=== PATIENT | male | born 1980 | race Two or more races ===

== ENCOUNTER 2024-09-20 10:00 | Inpatient (IN) | payer OTHER ==
[~2024-09-20] VITALS: Ht 190.5 cm; Wt 117.0 kg
[2024-09-24] MEDS ORDERED: METRONIDAZOLE/SODIUM CHLORIDE 500 MG/100 ML PIGGYBACK IV ONE (07:31)
[2024-09-24] MEDS ORDERED: CEFTRIAXONE SODIUM 2,000 MG VIAL ONE (07:31)
[2024-09-24] MEDS ORDERED: LIDOCAINE HCL 1%/EPINEPHRINE 20ML VIAL IJ ONE (09:05)
[2024-09-24] MEDS ORDERED: BUPIVACAINE HCL/Mpf 0.5% 10ML VIAL ONE (09:05)
[2024-09-24] MEDS ORDERED: SUGAMMADEX SODIUM 200 MG/2 ML VIAL IV ONE (15:52)
[2024-09-24] MEDS ORDERED: OxyCODONE HCL 5 MG TABLET (ROXICODONE) PO PRN (16:00)
[2024-09-24] MEDS ORDERED: MORPHINE SULFATE 4 MG/ML CARTRIDGE IV PRN (16:00)
[2024-09-24] MEDS ORDERED: 0.9 % SODIUM CHLORIDE 1,000 ML IV SCH (16:00)
[2024-09-24] MEDS ORDERED: ONDANSETRON HCL 2 MG/ML VIAL IV PRN (16:00)
[2024-09-24] MEDS ORDERED: POLYETHYLENE GLYCOL 3350 17 GM BLIST.PACK PO SCH (17:00)
[2024-09-24] MEDS ORDERED: HYOSCYAMINE SULFATE 0.125 MG TAB.SUBL SL SCH (17:00)
[2024-09-24] MEDS ORDERED: SIMETHICONE 125 MG CAPSULE PO SCH (17:00)
[2024-09-24] MEDS ORDERED: METOCLOPRAMIDE HCL 5 MG/ML VIAL IV SCH (17:00)
[2024-09-24] MEDS ORDERED: GABAPENTIN 300 MG CAPSULE PO SCH (17:00)
[2024-09-24] MEDS ORDERED: MORPHINE SULFATE 4 MG/ML VIAL IV ONE (18:10)
[2024-09-24 19:34] LABS: BASO % 0.2 % (0.1-1.2); HEMATOCRIT 39.8 % (40.1-51.0); HEMOGLOBIN 13.1 g/dL (13.7-17.5); LYMPH # 0.45 (1.18-3.74); LYMPH % 8.4 % (19.3-53.1); MEAN CORPUSCULAR HEMOGLOBIN 29.1 pg (25.6-32.2); MONO # 0.52 (0.24-0.82); MONO % 9.8 % (4.7-12.5); NEUT # 4.34 (1.56-6.13); NEUT % 81.4 % (34.0-71.1); PLATELET COUNT 180 K/uL (163-369); RED CELL DISTRIBUTION WIDTH 13.2 % (11.6-14.4)
[2024-09-24] MEDS ORDERED: ACETAMINOPHEN 500 MG GEL..CAP PO SCH (20:00)
[2024-09-24] MEDS ORDERED: CELECOXIB 200 MG CAPSULE PO SCH (21:00)
[2024-09-24] MEDS ORDERED: FAMOTIDINE/PF 20 MG/2 ML VIAL IV PUSH SCH (21:00)
[2024-09-25] VITALS: BP 137/80; O2SAT 92
[2024-09-25 06:48] LABS: HEMATOCRIT 40.7 % (40.1-51.0); HEMOGLOBIN 13.4 g/dL (13.7-17.5); LYMPH # 0.63 (1.18-3.74); LYMPH % 10.9 % (19.3-53.1); MEAN CORPUSCULAR HEMOGLOBIN 28.8 pg (25.6-32.2); MONO # 0.69 (0.24-0.82); MONO % 11.9 % (4.7-12.5); NEUT # 4.47 (1.56-6.13); PLATELET COUNT 211 K/uL (163-369); RED BLOOD COUNT 4.66 M/uL (4.63-6.08); RED CELL DISTRIBUTION WIDTH 13.4 % (11.6-14.4)
[2024-09-25 07:10] LABS: ALBUMIN 3.4 gm/dL (3.4-5.0); CALCIUM 8.9 mg/dL (8.5-10.1); CREATININE SERUM 0.93 mg/dL (0.70-1.30); GFR 88.68; MAGNESIUM 1.9 mg/dL (1.8-2.4); PHOSPHOROUS 2.5 mg/dL (2.5-4.9); POTASSIUM 4.25 mEq/L (3.5-5.1)
[2024-09-25 08:38] VITALS: BP 130/79; O2SAT 93
[2024-09-25] MEDS ORDERED: LACTOBACILLUS ACIDOPHILUS 1 CAP CAP PO SCH (09:00)
[2024-09-25 16:16] VITALS: BP 133/81; O2SAT 96
[2024-09-25] MEDS ORDERED: ENOXAPARIN SODIUM 40 MG/0.4 ML SYRINGE SUBCUTANEO SCH (17:00)
[2024-09-26 00:18] VITALS: BP 134/82; O2SAT 100
[2024-09-26 07:29] LABS: BASO % 0.2 % (0.1-1.2); EOS # 0.02 (0.04-0.54); EOS % 0.2 % (0.7-7.0); HEMATOCRIT 39.6 % (40.1-51.0); HEMOGLOBIN 12.9 g/dL (13.7-17.5); LYMPH % 10.6 % (19.3-53.1); MEAN CORPUSCULAR HEMOGLOBIN 29.6 pg (25.6-32.2); MONO # 0.76 (0.24-0.82); NEUT # 6.69 (1.56-6.13); NEUT % 79.2 % (34.0-71.1); PLATELET COUNT 201 K/uL (163-369); RED BLOOD COUNT 4.36 M/uL (4.63-6.08); RED CELL DISTRIBUTION WIDTH 13.7 % (11.6-14.4)
[2024-09-26 08:14] LABS: CALCIUM 8.7 mg/dL (8.5-10.1); CREATININE SERUM 0.94 mg/dL (0.70-1.30); GFR 87.59; MAGNESIUM 2.1 mg/dL (1.8-2.4); PHOSPHOROUS 2.1 mg/dL (2.5-4.9); POTASSIUM 4.56 mEq/L (3.5-5.1)
[2024-09-26 08:25] VITALS: BP 131/84; O2SAT 96
[2024-09-26] MEDS ORDERED: ENOXAPARIN SODIUM 40 MG/0.4 ML SYRINGE SUBCUTANEO SCH (09:00)
[2024-09-26] MEDS ORDERED: POTASSIUM PHOS,M-BASIC-D-BASIC 3 MM/ML VIAL IV NR (12:00)
[2024-09-26] MEDS ORDERED: TAMSULOSIN HCL 0.4 MG CAP PO SCH (17:00)
[2024-09-26 23:20] VITALS: BP 120/85; O2SAT 95
[2024-09-27 01:39] VITALS: BP 109/72; O2SAT 96
[2024-09-27 08:53] VITALS: BP 123/73; O2SAT 95
[2024-09-27] MEDS ORDERED: 0.9 % SODIUM CHLORIDE 1,000 ML IV SCH (14:00)
[2024-09-27 16:13] VITALS: BP 134/88; O2SAT 96
[2024-09-27] MEDS ORDERED: GABAPENTIN 300 MG CAPSULE PO PRN (20:32)
[2024-09-28 01:01] VITALS: BP 126/79; O2SAT 95
[2024-09-28 07:03] LABS: BASO % 0.6 % (0.1-1.2); EOS # 0.44 (0.04-0.54); EOS % 4.9 % (0.7-7.0); HEMATOCRIT 35.8 % (40.1-51.0); HEMOGLOBIN 11.8 g/dL (13.7-17.5); LYMPH # 1.06 (1.18-3.74); LYMPH % 11.8 % (19.3-53.1); MEAN CORPUSCULAR HEMOGLOBIN 28.9 pg (25.6-32.2); MONO # 0.93 (0.24-0.82); MONO % 10.3 % (4.7-12.5); NEUT # 6.31 (1.56-6.13); PLATELET COUNT 255 K/uL (163-369); RED BLOOD COUNT 4.09 M/uL (4.63-6.08); RED CELL DISTRIBUTION WIDTH 13.3 % (11.6-14.4)
[2024-09-28 07:42] LABS: CALCIUM 8.8 mg/dL (8.5-10.1); CREATININE SERUM 0.79 mg/dL (0.70-1.30); GFR 107.05; PHOSPHOROUS 3.1 mg/dL (2.5-4.9); POTASSIUM 4.15 mEq/L (3.5-5.1)
[2024-09-28] MEDS ORDERED: LOPERAMIDE HCL 2 MG CAPSULE PO SCH (08:00)
[2024-09-28 08:26] VITALS: BP 125/85; O2SAT 95
[2024-09-28] MEDS ORDERED: SUGAMMADEX SODIUM 200 MG/2 ML VIAL IV ONE (09:45)
[2024-09-28 17:02] VITALS: BP 112/75; O2SAT 95
[2024-09-28 22:45] VITALS: BP 130/897; O2SAT 99
[2024-09-29 07:30] VITALS: BP 121/80; O2SAT 98
[2024-09-29] MEDS ORDERED: IMODIUM A-D2 M2 PO (10:36)
[2024-09-29] MEDS ORDERED: HYOSCYAMINE0.125 M1 SL (10:37)
[2024-09-29] MEDS ORDERED: INTESTINEX680 M1 PO (10:37)
== END 2024-09-29 13:21 | disposition home or self-care (01) | DRG 330 ==
LOC: O/R 09-24 08:25 → SURH 09-24 09:15 → SURG 09-24 16:50
PROVIDERS: Internal Medicine Geriatric Medicine; ADMIT Surgery; ATTEND Surgery
PROC: 0DTP4ZZ Resection of Rectum, Percutaneous Endoscopic Approach (ICD-10-PCS; 2024-09-24)
PROC: 0DJD8ZZ Inspection of Lower Intestinal Tract, Via Natural or Artificial Opening Endoscopic (ICD-10-PCS; 2024-09-24)
PROC: 8E0W4CZ Robotic Assisted Procedure of Trunk Region, Percutaneous Endoscopic Approach (ICD-10-PCS; 2024-09-24)
PROC: 0DTN4ZZ Resection of Sigmoid Colon, Percutaneous Endoscopic Approach (ICD-10-PCS; 2024-09-24)
PROC: 0D1B4Z4 Bypass Ileum to Cutaneous, Percutaneous Endoscopic Approach (ICD-10-PCS; principal; 2024-09-24 09:15)
DX: C20 Malignant neoplasm of rectum (principal); C79.9 Secondary malignant neoplasm of unspecified site; D49.0 Neoplasm of unspecified behavior of digestive system; R59.0 Localized enlarged lymph nodes; Z43.2 Encounter for attention to ileostomy; G62.0 Drug-induced polyneuropathy; T45.1X5A Adverse effect of antineoplastic and immunosuppressive drugs, initial encounter; M62.81 Muscle weakness (generalized); M75.91 Shoulder lesion, unspecified, right shoulder; M62.830 Muscle spasm of back; R00.0 Tachycardia, unspecified
CPT/HCPCS: 44207; 44213; 44187; 45330; S2900

== ENCOUNTER 2024-12-04 10:01 | Inpatient (IN) | payer OTHER ==
[~2024-12-04] VITALS: Ht 190.5 cm; Wt 100.7 kg
[~2024-12-04 10:01] MED LIST: CELEBREX100 MG PO; CELECOXIB200 MG PO; CIPRO500 MG; HYOSCYAMINE0.125 M1 SL; IMODIUM A-D2 M2 PO; INTESTINEX680 M1 PO; METRONIDAZOLE500 MG; NORFLEX100MG; OXYCONTIN10 M1 PO; PANADOL EXTRA500 MG
[2024-12-04] MEDS ORDERED: PIPERACILLIN/TAZOBACTAM SODIUM 3.375 GM VIAL IV ONE (11:01)
[2024-12-04] MEDS ORDERED: RINGERS SOLUTION,LACTATED 1,000 ML IV SCH (11:15)
[2024-12-04 11:31] LABS: BASO % 0.3 % (0.1-1.2); EOS # 0.32 (0.04-0.54); EOS % 4.8 % (0.7-7.0); LYMPH # 0.97 (1.18-3.74); LYMPH % 14.5 % (19.3-53.1); MEAN PLATELET VOLUME 9.20 fl (9.4-12.4); MONO # 0.73 (0.24-0.82); MONO % 10.9 % (4.7-12.5); NEUT # 4.63 (1.56-6.13); NEUT % 68.9 % (34.0-71.1); RED CELL DISTRIBUTION WIDTH 14.3 % (11.6-14.4)
[2024-12-04 11:47] LABS: INR 0.97
[2024-12-04 11:52] LABS: ALT/SGPT 49.0 U/L (12-78); AST/SGOT 18.0 U/L (15-37); BILIRUBIN TOTAL 1.69 mg/dL (0.3-1.2); BUN CREA RATIO 15.0 (7.0-25.0); CREATININE SERUM 0.71 mg/dL (0.70-1.30); GFR 121.08; GLOBULINA 4.6 G/DL (2.4-3.5); GLUCOSE FASTING 97.0 mg/dL (65-100); OSMOLALITY SERUM 282.0 MOSM/KG (275-295)
[2024-12-04] MEDS ORDERED: PIPERACILLIN/TAZOBACTAM SODIUM 3.375 GM in 0.9 % SODIUM CHLORIDE 100 ML IV SCH (12:00)
[2024-12-04 13:01] LABS: COVID-19 AG NEGATIVE (NEGATIVE)
[2024-12-04 14:00] VITALS: BP 104/73; O2SAT 97
[2024-12-04 17:00] VITALS: BP 103/71; O2SAT 98
[2024-12-04] MEDS ORDERED: CEFTRIAXONE SODIUM 1,000 MG VIAL IV SCH (17:00)
[2024-12-04 19:36] LABS: URINE APPEARANCE Clear; URINE BILIRRUBIN Negative (NEGATIVE); URINE BLOOD Negative; URINE COLOR Yellow; URINE GLUCOSE Negative (NEGATIVE); URINE KETONE Trace (NEGATIVE); URINE LEUKOCYTE Negative; URINE NITRATE Negative; URINE PROTEIN Negative (NEGATIVE); URINE UROBILINOGEN 0.2 E.U./dl
[2024-12-04 19:39] LABS: URINE EPITHELIAL CELLS 1.9 uL (0.0-38.8); URINE WBC 9.3 uL (0.0-23.2)
[2024-12-04 19:43] LABS: URINE BACTERIA 2.4 uL (0.0-1933); URINE CAST 0.00 uL (0.0-1.40); URINE RBC 1.4 uL (0.0-20.8)
[2024-12-04] MEDS ORDERED: VANCOMYCIN HCL 1,000 MG VIAL ONE (20:05)
[2024-12-04] MEDS ORDERED: VANCOMYCIN HCL 1,000 MG VIAL IV SCH (21:00)
[2024-12-05 01:48] VITALS: BP 109/73; O2SAT 99
[2024-12-05] MEDS ORDERED: MORPHINE SULFATE 4 MG IV PRN (02:45)
[2024-12-05] MEDS ORDERED: MORPHINE SULFATE 4 MG/ML CARTRIDGE IV PRN ×2 (03:00→17:00)
[2024-12-05] MEDS ORDERED: VANCOMYCIN HCL 1,000 MG VIAL ONE ×3 (06:13→20:16)
[2024-12-05 06:47] LABS: BASO % 0.3 % (0.1-1.2); EOS # 0.37 (0.04-0.54); EOS % 6.3 % (0.7-7.0); LYMPH # 1.00 (1.18-3.74); LYMPH % 16.9 % (19.3-53.1); MEAN PLATELET VOLUME 9.50 fl (9.4-12.4); MONO # 0.59 (0.24-0.82); MONO % 10.0 % (4.7-12.5); NEUT # 3.92 (1.56-6.13); NEUT % 66.2 % (34.0-71.1); RED CELL DISTRIBUTION WIDTH 14.5 % (11.6-14.4)
[2024-12-05 07:40] LABS: BUN CREA RATIO 11.0 (7.0-25.0); CREATININE SERUM 0.63 mg/dL (0.70-1.30); GFR 139.0; GLUCOSE FASTING 99.0 mg/dL (65-100); OSMOLALITY SERUM 281.0 MOSM/KG (275-295)
[2024-12-05 08:34] VITALS: BP 105/72; O2SAT 96
[2024-12-05] MEDS ORDERED: DIBUCAINE 30 GM TUBE ONE (16:41)
[2024-12-05] MEDS ORDERED: LIDOCAINE HCL 1% 20 ML VIAL IJ ONE (16:41)
[2024-12-05] MEDS ORDERED: BUPIVACAINE HCL/MPF 0.5% 30ML VIAL ONE (16:41)
[2024-12-05] MEDS ORDERED: POVIDONE-IODINE 118 ML BOTT TOP ONE (16:41)
[2024-12-05] MEDS ORDERED: HEMOSTATIC MATRIX 1 KIT KIT TOP ONE (16:41)
[2024-12-05] MEDS ORDERED: HYOSCYAMINE SULFATE 0.125 MG TAB.SUBL SL SCH (17:00)
[2024-12-05] MEDS ORDERED: KETOROLAC TROMETHAMINE 30 MG VIAL IV SCH (17:00)
[2024-12-05] MEDS ORDERED: ONDANSETRON HCL 2 MG/ML VIAL IV PRN (17:00)
[2024-12-05] MEDS ORDERED: OxyCODONE HCL 5 MG TABLET (ROXICODONE) PO PRN (17:00)
[2024-12-05] MEDS ORDERED: CEFTRIAXONE SODIUM 2,000 MG VIAL IV SCH (17:00)
[2024-12-05] MEDS ORDERED: GABAPENTIN 300 MG CAPSULE PO SCH (17:00)
[2024-12-05] MEDS ORDERED: METRONIDAZOLE/SODIUM CHLORIDE 500 MG/100 ML PIGGYBACK IV ONE (17:04)
[2024-12-05] MEDS ORDERED: CEFTRIAXONE SODIUM 2,000 MG VIAL ONE (17:04)
[2024-12-05] MEDS ORDERED: HYDROGEN PEROXIDE 473 ML BOTTLE TOP ONE (17:42)
[2024-12-05] MEDS ORDERED: ACETAMINOPHEN 500 MG GEL..CAP PO SCH (20:00)
[2024-12-05] MEDS ORDERED: FAMOTIDINE/PF 20 MG/2 ML VIAL IV PUSH SCH (21:00)
[2024-12-05] MEDS ORDERED: FAMOTIDINE/PF 20 MG/2 ML VIAL IV SCH (21:00)
[2024-12-05 21:38] VITALS: BP 119/81; O2SAT 98
[2024-12-06 01:52] VITALS: BP 102/67; O2SAT 100
[2024-12-06] MEDS ORDERED: VANCOMYCIN HCL 1,000 MG VIAL ONE (06:19)
[2024-12-06 06:52] LABS: BASO % 0.5 % (0.1-1.2); EOS # 0.25 (0.04-0.54); EOS % 4.2 % (0.7-7.0); LYMPH # 0.95 (1.18-3.74); LYMPH % 15.9 % (19.3-53.1); MEAN PLATELET VOLUME 9.60 fl (9.4-12.4); MONO # 0.75 (0.24-0.82); NEUT # 3.97 (1.56-6.13); NEUT % 66.4 % (34.0-71.1); RED CELL DISTRIBUTION WIDTH 14.6 % (11.6-14.4)
[2024-12-06 07:10] LABS: MONO % 12.5 % (4.7-12.5)
[2024-12-06 07:24] LABS: BUN CREA RATIO 9.0 (7.0-25.0); CREATININE SERUM 0.75 mg/dL (0.70-1.30); GFR 113.66; GLUCOSE FASTING 106.0 mg/dL (65-100); OSMOLALITY SERUM 283.0 MOSM/KG (275-295)
[2024-12-06 08:30] VITALS: BP 106/50; O2SAT 98
[2024-12-06] MEDS ORDERED: ENOXAPARIN SODIUM 40 MG/0.4 ML SYRINGE SUBCUTANEO SCH (17:00)
[2024-12-06 17:35] VITALS: BP 99/66; O2SAT 98
[2024-12-06] MEDS ORDERED: MEROPENEM 500 MG/VIAL VIAL IV SCH (18:00)
[2024-12-07 02:08] VITALS: BP 106/69; O2SAT 98
[2024-12-07] MEDS ORDERED: HYOSCYAMINE SULFATE 0.125 MG TAB.SUBL SL PRN (08:25)
[2024-12-07 08:28] VITALS: BP 128/80; O2SAT 100
[2024-12-07] MEDS ORDERED: ENOXAPARIN SODIUM 40 MG/0.4 ML SYRINGE SUBCUTANEO SCH (09:00)
[2024-12-07 17:58] VITALS: BP 117/77; O2SAT 97
[2024-12-08 01:24] VITALS: BP 107/70; O2SAT 97
[2024-12-08 08:12] VITALS: BP 136/80; O2SAT 96
[2024-12-08] MEDS ORDERED: SOD FERRIC GLUC COMPLX/SUCROSE 62.5 MG/5 ML AMPUL IV SCH (09:24)
[2024-12-08 11:23] LABS: BASO % 0.4 % (0.1-1.2); EOS # 0.27 (0.04-0.54); EOS % 5.3 % (0.7-7.0); LYMPH # 1.05 (1.18-3.74); LYMPH % 20.5 % (19.3-53.1); MEAN PLATELET VOLUME 9.70 fl (9.4-12.4); MONO # 0.42 (0.24-0.82); MONO % 8.2 % (4.7-12.5); NEUT # 3.34 (1.56-6.13); NEUT % 65.0 % (34.0-71.1); RED CELL DISTRIBUTION WIDTH 14.5 % (11.6-14.4)
[2024-12-08 11:45] LABS: BUN CREA RATIO 10.0 (7.0-25.0); CREATININE SERUM 0.58 mg/dL (0.70-1.30); GFR 152.91; GLUCOSE FASTING 106.0 mg/dL (65-100); OSMOLALITY SERUM 283.0 MOSM/KG (275-295)
[2024-12-08] MEDS ORDERED: Cyanocobalamin/Mecobalamin 1 TAB.SL SL NR (13:30)
[2024-12-08] MEDS ORDERED: FOLIC ACID 1 MG TABLET PO NR (13:30)
[2024-12-08] MEDS ORDERED: MAGNESIUM SULFATE IN WATER 4 GM/100 ML PIGGYBACK IV NR (14:30)
[2024-12-08 16:00] VITALS: BP 129/72; O2SAT 95
[2024-12-09 00:16] VITALS: BP 113/75; O2SAT 96
[2024-12-09 08:44] VITALS: BP 117/80; O2SAT 96
[2024-12-09] MEDS ORDERED: Cyanocobalamin/Mecobalamin 1 TAB.SL SL SCH (09:00)
[2024-12-09] MEDS ORDERED: FOLIC ACID 1 MG TABLET PO SCH (09:00)
[2024-12-09 16:00] VITALS: BP 133/80; O2SAT 99
[2024-12-09 23:58] VITALS: BP 125/81; O2SAT 97
[2024-12-10 08:31] VITALS: BP 125/73; O2SAT 97
[2024-12-10 15:17] LABS: BASO % 0.4 % (0.1-1.2); EOS # 0.26 (0.04-0.54); EOS % 5.6 % (0.7-7.0); LYMPH # 1.01 (1.18-3.74); LYMPH % 21.8 % (19.3-53.1); MEAN PLATELET VOLUME 10.70 fl (9.4-12.4); MONO # 0.59 (0.24-0.82); MONO % 12.7 % (4.7-12.5); NEUT # 2.74 (1.56-6.13); NEUT % 59.3 % (34.0-71.1); RED CELL DISTRIBUTION WIDTH 14.2 % (11.6-14.4)
[2024-12-10 15:57] LABS: ALT/SGPT 51.0 U/L (12-78); AST/SGOT 30.0 U/L (15-37); BILIRUBIN TOTAL 1.41 mg/dL (0.3-1.2); BUN CREA RATIO 9.0 (7.0-25.0); CREATININE SERUM 0.55 mg/dL (0.70-1.30); GFR 162.58; GLOBULINA 3.7 G/DL (2.4-3.5); GLUCOSE FASTING 92.0 mg/dL (65-100); OSMOLALITY SERUM 278.0 MOSM/KG (275-295)
[2024-12-10 16:00] VITALS: BP 132/84; O2SAT 96
== END 2024-12-10 18:31 | disposition home or self-care (01) | DRG 345 ==
LOC: ER 10:01 → SURH 12:12
PROVIDERS: General Practice; Internal Medicine; Internal Medicine Geriatric Medicine; ADMIT Surgery; ATTEND Surgery
PROC: 3E0T3BZ Introduction of Anesthetic Agent into Peripheral Nerves and Plexi, Percutaneous Approach (ICD-10-PCS; 2024-12-04)
PROC: 0DPDX0Z Removal of Drainage Device from Lower Intestinal Tract, External Approach (ICD-10-PCS; 2024-12-05)
PROC: 0D9P7ZZ Drainage of Rectum, Via Natural or Artificial Opening (ICD-10-PCS; principal; 2024-12-05 20:15)
PROC: BW21ZZZ Computerized Tomography (CT Scan) of Abdomen and Pelvis (ICD-10-PCS; 2024-12-09)
PROC: 02HV33Z Insertion of Infusion Device into Superior Vena Cava, Percutaneous Approach (ICD-10-PCS; 2024-12-10)
DX: K65.1 Peritoneal abscess (principal); C20 Malignant neoplasm of rectum; Z93.2 Ileostomy status